=== PATIENT | female | born 1945 ===

== ENCOUNTER → 2017-09-13 | Outpatient (CLI) | payer OTHER ==
[~2017-09-13] MED LIST: AMLO10 PO; BUDE6HFA INH; CYCL10 PO; FURO40 PO; GLIP5 PO; HYDACE5 PO; HYDCHL25 PO; IBUHYD PO; LOSARTAN POTAS100 MG PO; MECL25 PO; PRED20 PO; RXCYCL10 PO; TIOT18 INH
== END | disposition home or self-care (01) ==
LOC: LAB SHORT 18:50 → LAB 18:50
DX: E11.9 Type 2 diabetes mellitus without complications (principal)
CPT/HCPCS: 82043

== ENCOUNTER → 2018-01-05 | Outpatient (CLI) | payer OTHER | END | disposition home or self-care (01) | LOC: PLD 13:45 → LAB SHORT 13:45 | DX: C44.622 Squamous cell carcinoma of skin of right upper limb, including shoulder (principal); C44.629 Squamous cell carcinoma of skin of left upper limb, including shoulder; H61.001 Unspecified perichondritis of right external ear | CPT/HCPCS: 88305 ==